=== PATIENT | male | born 1960 | race African-American/Black ===

== ENCOUNTER 2021-07-01 10:20 | Inpatient (IN) | payer MEDICAID, OTHER ==
[~2021-07-01] VITALS: Ht 182.9 cm; Wt 97.5 kg
[~2021-07-01 10:20] MED LIST: NALO4SPR BOTHNSTRLS
[2021-07-01] MEDS ORDERED: NALOXONE HCL 1 MG/ML 2ML VIAL ONE (10:35)
[2021-07-01 10:59] LABS: BASOPHILS % 0.3 % (0.0-2.0); EOSINOPHILS % 0.1 % (0.0-5.0); HEMATOCRIT. 48.1 % (42.0-52.0); HEMOGLOBIN. 16.4 g/dL (14.0-18.0); LYMPHOCYTES % 7.1 % (20.0-50.0); MEAN CORPUSCULAR HEMOGLOBIN 34.3 pg (28.0-32.0); MEAN CORPUSCULAR VOLUME 100.4 fL (80.0-94.0); MEAN PLATELET VOLUME 8.4 fl (7.4-10.4); MONOCYTES % 3.9 % (2.0-8.0); NEUTROPHILS % 88.6 % (40.0-76.0); PLATELET 220 x1000/uL (130-400); RED BLOOD CELL COUNT 4.79 mill/uL (4.7-6.1); RED CELL DISTRIBUTION WIDTH 14.6 % (11.6-14.6)
[2021-07-01 11:04] LABS: CHLORIDE 104 mEq/L (98-107)
[2021-07-01] MEDS ORDERED: LEVOFLOXACIN 750MG PREMIX 150 ML IV ONE (13:00)
[2021-07-01] MEDS ORDERED: FUROSEMIDE 20MG/2ML VIAL IVP ONE (13:00)
[2021-07-01 18:30] VITALS: BP 114/72
[2021-07-01 20:00] VITALS: BP 134/95
[2021-07-01] MEDS ORDERED: CLONIDINE 0.1MG TABLET PO PRN (23:45)
[2021-07-02] VITALS: BP 144/90
[2021-07-02 04:00] VITALS: BP 147/91
[2021-07-02 07:27] LABS: BASOPHILS % 0.1 % (0.0-2.0); HEMATOCRIT. 40.5 % (42.0-52.0); HEMOGLOBIN. 13.9 g/dL (14.0-18.0); LYMPHOCYTES % 11.8 % (20.0-50.0); MEAN CORPUSCULAR VOLUME 98.7 fL (80.0-94.0); MEAN PLATELET VOLUME 8.9 fl (7.4-10.4); MONOCYTES % 3.1 % (2.0-8.0); PLATELET 167 x1000/uL (130-400); RED CELL DISTRIBUTION WIDTH 14.3 % (11.6-14.6)
[2021-07-02 07:36] LABS: CHLORIDE 99 mEq/L (98-107)
[2021-07-02 08:00] VITALS: BP 167/74
[2021-07-02] MEDS ORDERED: PNEUMOCOCCAL 23-VAL P-SAC VAC 0.5 ML IM ONE (08:00)
[2021-07-02] MEDS ORDERED: ENOXAPARIN 40MG/0.4ML SYR SUBCUT SCH (09:00)
[2021-07-02] MEDS ORDERED: ASPIRIN 81MG TABLET PO SCH (09:00)
[2021-07-02] MEDS ORDERED: LISINOPRIL 10MG TABLET PO SCH (09:00)
[2021-07-02] MEDS ORDERED: FUROSEMIDE 40MG/4ML VIAL IVP SCH (09:00)
[2021-07-02] MEDS ORDERED: ENOXAPARIN 30MG/0.3ML SYR SUBCUT SCH (09:00)
[2021-07-02] MEDS ORDERED: CARVEDILOL 3.125 MG TABLET PO SCH (09:00)
[2021-07-02] MEDS ORDERED: AMLODIPINE 10MG TABLET PO SCH (09:00)
[2021-07-02 12:00] VITALS: BP 167/91
[2021-07-02 14:49] VITALS: BP 167/74
== END 2021-07-02 15:13 | disposition home or self-care (01) | DRG 52 ==
LOC: ER 10:20 → 7EST 14:31 → EDBEDREQ 15:25 → EDBEDREQTM 15:25 → ENRESERV 16:07
PROVIDERS: ADMIT Internal Medicine; ATTEND Internal Medicine
DX: G92.9 Unspecified toxic encephalopathy (principal); N17.0 Acute kidney failure with tubular necrosis; J81.0 Acute pulmonary edema; E11.9 Type 2 diabetes mellitus without complications; Z20.822 Contact with and (suspected) exposure to COVID-19; I10 Essential (primary) hypertension; Z79.899 Other long term (current) drug therapy; F19.10 Other psychoactive substance abuse, uncomplicated
CPT/HCPCS: 36415; 71045; 80048; 80053; 82962; 83880; 84484; 85025; 87426; 90732; 93306; 99285; J1650; J1940; J1956; J2310

== ENCOUNTER 2022-08-18 12:50 | Inpatient (IN) | payer MEDICAID, OTHER ==
[~2022-08-18] VITALS: Ht 182.9 cm; Wt 83.0 kg
[~2022-08-18 12:50] MED LIST changes: +FAMO20TA8 PO; +GABA-529 MT; +LEVO-65 MT; -NALO4SPR BOTHNSTRLS
[2022-08-18] MEDS ORDERED: MORPHINE SULFATE 4 MG/ML CPJ (NOT FOR IM USE) IV STA (13:21)
[2022-08-18] MEDS ORDERED: ONDANSETRON HCL 4MG/2ML INJ IV STA (13:21)
[2022-08-18] MEDS ORDERED: SODIUM CHLORIDE 0.9% 1,000 ML IV ONE (13:30)
[2022-08-18] MEDS ORDERED: PIPERACILLIN/TAZ 3.375G PREMIX 50 ML IV ONE (14:45)
[2022-08-18] MEDS ORDERED: SODIUM CHLORIDE 0.9% 1000ML BAG (SEPSIS BOLUS) IV ONE (14:45)
[2022-08-18] MEDS ORDERED: VANCOMYCIN 1G PREMIX 200 ML IV ONE (14:45)
[2022-08-18 14:48] LABS: HEMATOCRIT. 37.6 % (42.0-52.0); HEMOGLOBIN. 12.3 g/dL (14.0-18.0); MEAN CORPUSCULAR HEMOGLOBIN 28.3 pg (28.0-32.0); MEAN CORPUSCULAR VOLUME 86.3 fL (80.0-94.0); MEAN PLATELET VOLUME 7.5 fl (7.4-10.4); PLATELET 250 x1000/uL (130-400); RED BLOOD CELL COUNT 4.36 mill/uL (4.7-6.1); RED CELL DISTRIBUTION WIDTH 20.3 % (11.6-14.6)
[2022-08-18 14:56] LABS: CHLORIDE 101 mEq/L (98-107)
[2022-08-18 15:15] LABS: PLATELET ESTIMATE NORMAL
[2022-08-18] MEDS ORDERED: ONDANSETRON HCL 4MG/2ML INJ IV NR (15:45)
[2022-08-18] MEDS ORDERED: MORPHINE SULFATE 4 MG/ML CPJ (NOT FOR IM USE) IV NR (15:45)
[2022-08-18 16:14] LABS: INR 1.2; PROTHROMBIN TIME 12.3 sec (9.6-11.0)
[2022-08-18] MEDS ORDERED: MORPHINE SULFATE 2 MG/ML CPJ (NOT FOR IM USE) IV PRN (19:00)
[2022-08-18] MEDS ORDERED: ONDANSETRON HCL 4MG/2ML INJ IV PRN (19:00)
[2022-08-18] MEDS ORDERED: NALOXONE HCL 0.4MG/ML VIAL IV PRN (19:15)
[2022-08-18] MEDS ORDERED: IBUPROFEN 400MG TABLET PO ONE (21:00)
[2022-08-18] MEDS ORDERED: ACETAMINOPHEN 325MG TABLET PO ONE (21:00)
[2022-08-18 21:58] LABS: *AMPHETAMINES SCREEN URINE NEGATIVE (NEGATIVE); *BARBITURATES SCREEN URINE NEGATIVE (NEGATIVE); *BENZODIAZEPINES SCREEN URINE NEGATIVE (NEGATIVE); *COCAINE SCREEN URINE PRESUMTIVE POSITIVE (NEGATIVE); CANNABINOID URINE SCREEN PRESUMTIVE POSITIVE (NEGATIVE); METHADONE URINE SCREEN NEGATIVE (NEGATIVE); OPIATES URINE SCREEN PRESUMTIVE POSITIVE (NEGATIVE); PHENCYCLIDINE URINE SCREEN PRESUMTIVE POSITIVE (NEGATIVE)
[2022-08-18 22:42] LABS: CLARITY URINE CLEAR (CLEAR); COLOR URINE DARK YELLOW (YELLOW); KETONES URINE 3+ (NEGATIVE); LEUKOCYTE ESTERASE URINE NEGATIVE (NEGATIVE); NITRITE URINE NEGATIVE (NEGATIVE); OCCULT BLOOD URINE 1+ (NEGATIVE); PROTEIN URINE 2+ (NEGATIVE); SPECIFIC GRAVITY URINE 1.023 (1.005-1.030)
[2022-08-18 23:00] VITALS: BP 125/76
[2022-08-19] MEDS ORDERED: DEXTROSE 50% WATER 50ML SYRINGE IV PRN (01:00)
[2022-08-19] MEDS: CEFTRIAXONE 1,000 MG in DEXTROSE 5% WATER 50 ML IV SCH (02:12)
[2022-08-19] MEDS: AZITHROMYCIN 500 MG in DEXT 5% WATER 250 ML IV SCH (02:53)
[2022-08-19 04:00] VITALS: BP 126/86
[2022-08-19 06:28] LABS: BASOPHILS % 0.3 % (0.0-2.0); EOSINOPHILS % 0.1 % (0.0-5.0); HEMATOCRIT. 35.3 % (42.0-52.0); HEMOGLOBIN. 11.6 g/dL (14.0-18.0); LYMPHOCYTES % 10.8 % (20.0-50.0); MEAN CORPUSCULAR HEMOGLOBIN 28.6 pg (28.0-32.0); MEAN CORPUSCULAR VOLUME 87.3 fL (80.0-94.0); MONOCYTES % 4.1 % (2.0-8.0); NEUTROPHILS % 84.7 % (40.0-76.0); PLATELET 189 x1000/uL (130-400); RED BLOOD CELL COUNT 4.04 mill/uL (4.7-6.1)
[2022-08-19] MEDS: INSULIN LISPRO 100 UNITS/ML SUBCUT SCH ×2 (06:32→12:25)
[2022-08-19] MEDS: BLOOD SUGAR DIAGNOSTIC STRIP TEST SCH ×2 (06:32→12:18)
[2022-08-19 07:15] LABS: CHLORIDE 106 mEq/L (98-107)
[2022-08-19 08:00] VITALS: BP 147/89
[2022-08-19 12:00] VITALS: BP 156/90
[2022-08-19] MEDS: DEXT 5%/LACTATED RINGERS 1,000 ML IV SCH ×2 (12:21)
[2022-08-19 16:00] VITALS: BP 117/69
[2022-08-19 20:00] VITALS: BP 124/77
[2022-08-19] MEDS: ACETAMINOPHEN 325MG TABLET PO PRN (21:21)
[2022-08-20] VITALS (11 sets, daily range): BP systolic 111–135; BP diastolic 75–88
[2022-08-20] MEDS: CEFTRIAXONE 1,000 MG in DEXTROSE 5% WATER 50 ML IV SCH (02:26)
[2022-08-20] MEDS: AZITHROMYCIN 500 MG in DEXT 5% WATER 250 ML IV SCH (03:43)
[2022-08-20] MEDS ORDERED: LIDOCAINE HCL/PF 1% 10 MG/ML 5ML VIAL ONE (07:36)
[2022-08-20] MEDS ORDERED: IOHEXOL-300 50 ML BOTTLE IV ONE (07:36)
[2022-08-20] MEDS ORDERED: FENTANYL CITRATE/PF 50MCG/ML 2ML VIAL ONE (07:55)
[2022-08-20] MEDS ORDERED: MIDAZOLAM HCL 2 MG/2 ML VIAL ONE (07:55)
[2022-08-20] MEDS ORDERED: CEFAZOLIN 1000MG PREMIX 50 ML IV ONE ×3 (07:56→10:00)
[2022-08-20] MEDS ORDERED: FENTANYL CITRATE/PF 50MCG/ML 2ML VIAL IV ONE (08:20)
[2022-08-20] MEDS ORDERED: CEFAZOLIN 1000MG PREMIX 50 ML IV SCH (08:20)
[2022-08-20] MEDS ORDERED: MIDAZOLAM HCL 2 MG/2 ML VIAL IV ONE (08:20)
[2022-08-20] MEDS: ACETAMINOPHEN 325MG TABLET PO PRN (17:53)
[2022-08-20] MEDS ORDERED: IBUPROFEN 600MG TABLET PO PRN (18:45)
[2022-08-20] MEDS ORDERED: IPRATROPIUM/ALBUTEROL 0.5-3(2.5)MG/3ML NEB HHN PRN (18:45)
[2022-08-20] MEDS ORDERED: GUAIFENESIN-DM 200MG-20MG/10ML UDC PO PRN (18:45)
[2022-08-21] VITALS: BP 119/78
[2022-08-21] MEDS: DEXT 5%/LACTATED RINGERS 1,000 ML IV SCH (02:25)
[2022-08-21] MEDS: CEFTRIAXONE 1,000 MG in DEXTROSE 5% WATER 50 ML IV SCH (02:25)
[2022-08-21] MEDS: AZITHROMYCIN 500 MG in DEXT 5% WATER 250 ML IV SCH (02:25)
[2022-08-21 04:00] VITALS: BP 117/67
[2022-08-21 08:00] VITALS: BP 133/88
[2022-08-21 12:00] VITALS: BP 124/90
[2022-08-21 16:00] VITALS: BP 131/63
[2022-08-21 20:00] VITALS: BP 127/79
[2022-08-22] VITALS: BP 133/82
[2022-08-22] MEDS: DEXT 5%/LACTATED RINGERS 1,000 ML IV SCH (01:57)
[2022-08-22] MEDS: CEFTRIAXONE 1,000 MG in DEXTROSE 5% WATER 50 ML IV SCH (01:57)
[2022-08-22 04:00] VITALS: BP 123/79
[2022-08-22 08:00] VITALS: BP 136/88
[2022-08-22] MEDS: AZITHROMYCIN 500 MG TABLET PO SCH (08:21)
[2022-08-22] MEDS ORDERED: LEVO-65 MT (10:55)
[2022-08-22 12:00] VITALS: BP 119/81
[2022-08-22 16:00] VITALS: BP 135/92
[2022-08-22 20:00] VITALS: BP 122/88
[2022-08-23] VITALS: BP 125/84
[2022-08-23] MEDS: CEFTRIAXONE 1,000 MG in DEXTROSE 5% WATER 50 ML IV SCH (00:49)
[2022-08-23] MEDS: DEXT 5%/LACTATED RINGERS 1,000 ML IV SCH (00:49)
[2022-08-23 04:00] VITALS: BP 129/75
[2022-08-23 08:00] VITALS: BP 108/75
[2022-08-23] MEDS: AZITHROMYCIN 500 MG TABLET PO SCH (09:35)
[2022-08-23 10:40] VITALS: BP 108/75
[2022-08-23 12:00] VITALS: BP 144/111
== END 2022-08-23 12:40 | disposition home or self-care (01) | DRG 466 ==
LOC: ER 12:50 → 8WST 16:19 → EDBEDREQ 16:26 → EDBEDREQTM 16:26 → ER 08-19 00:15
PROVIDERS: ADMIT Internal Medicine; ATTEND Internal Medicine
PROC: 0T25X0Z Change Drainage Device in Kidney, External Approach (ICD-10-PCS; principal; 2022-08-20)
DX: T83.022A Displacement of nephrostomy catheter, initial encounter (principal); J18.9 Pneumonia, unspecified organism; D64.9 Anemia, unspecified; E87.6 Hypokalemia; E11.9 Type 2 diabetes mellitus without complications; F10.20 Alcohol dependence, uncomplicated; Z20.822 Contact with and (suspected) exposure to COVID-19; F17.210 Nicotine dependence, cigarettes, uncomplicated; I10 Essential (primary) hypertension; Y73.2 Prosthetic and other implants, materials and accessory gastroenterology and urology devices associated with adverse incidents; Y92.89 Other specified places as the place of occurrence of the external cause
CPT/HCPCS: 36415; 50435; 71045; 74176; 80048; 80053; 80305; 80320; 81003; 82962; 83036; 83605; 83880; 84484; 85025; 86850; 86900; 87426; 93005; 99152; 99153; 99285; C1729; C1769; C9803; J0456; J0690; J0696; J2250; J2270; J2405; J2543; J3010; J3370; J3490; J7030; J7060; Q9967; G0480; G0500

== ENCOUNTER 2023-01-04 11:44 | Emergency (ER) | payer MEDICAID ==
[~2023-01-04] VITALS: Ht 182.9 cm; Wt 84.0 kg
[2023-01-04 11:50] VITALS: BP 168/99
[2023-01-04 13:42] LABS: BASOPHILS % 0.8 % (0.0-2.0); EOSINOPHILS % 0.8 % (0.0-5.0); HEMATOCRIT. 38.8 % (42.0-52.0); HEMOGLOBIN. 13.2 g/dL (14.0-18.0); LYMPHOCYTES % 43.8 % (20.0-50.0); MEAN CORPUSCULAR HEMOGLOBIN 31.8 pg (28.0-32.0); MEAN CORPUSCULAR VOLUME 93.6 fL (80.0-94.0); MEAN PLATELET VOLUME 6.8 fl (7.4-10.4); MONOCYTES % 5.2 % (2.0-8.0); NEUTROPHILS % 49.4 % (40.0-76.0); PLATELET 439 x1000/uL (130-400); RED BLOOD CELL COUNT 4.15 mill/uL (4.7-6.1); RED CELL DISTRIBUTION WIDTH 15.1 % (11.6-14.6)
[2023-01-04 13:52] LABS: CHLORIDE 104 mEq/L (98-107)
== END 2023-01-04 15:41 | disposition home or self-care (01) ==
LOC: ER 11:44
DX: T83.022A Displacement of nephrostomy catheter, initial encounter (principal); F41.9 Anxiety disorder, unspecified; E11.9 Type 2 diabetes mellitus without complications; I10 Essential (primary) hypertension; Y92.89 Other specified places as the place of occurrence of the external cause
CPT/HCPCS: 36415; 80053; 85025; 99283

== ENCOUNTER 2023-08-19 13:57 | Emergency (ER) | payer MEDICAID ==
[~2023-08-19] VITALS: Ht 167.6 cm; Wt 70.0 kg
[2023-08-19 14:03] VITALS: BP 154/90; PULSE 98; RESP 16; TEMP 98.2; O2SAT 100
[2023-08-19] MEDS ORDERED: ACETAMINOPHEN 325MG TABLET PO ONE (14:15)
[2023-08-19] MEDS ORDERED: IBUPROFEN 600MG TABLET PO ONE (14:15)
== END 2023-08-19 15:43 | disposition left against medical advice (07) ==
LOC: ER 14:06
DX: M79.604 Pain in right leg (principal); F41.9 Anxiety disorder, unspecified; E11.9 Type 2 diabetes mellitus without complications; I10 Essential (primary) hypertension; F14.90 Cocaine use, unspecified, uncomplicated
CPT/HCPCS: 99283

== ENCOUNTER 2024-01-04 01:06 | Inpatient (IN) | payer OTHER ==
[~2024-01-04] VITALS: Ht 170.2 cm; Wt 65.8 kg
[2024-01-04 01:11] VITALS: O2SAT 100
[2024-01-04 01:40] LABS: BASOPHILS % 1.2 % (0.0-2.0); EOSINOPHILS % 0.6 % (0.0-5.0); HEMATOCRIT. 37.9 % (42.0-52.0); HEMOGLOBIN. 13.1 g/dL (14.0-18.0); LYMPHOCYTES % 30.5 % (20.0-50.0); MEAN CORPUSCULAR HEMOGLOBIN 33.4 pg (28.0-32.0); MEAN CORPUSCULAR HGB CONC 34.7 g/dL (31.0-37.0); MEAN CORPUSCULAR VOLUME 96.3 fL (80.0-94.0); MEAN PLATELET VOLUME 8.5 fl (7.4-10.4); MONOCYTES % 7.1 % (2.0-8.0); NEUTROPHILS % 60.6 % (40.0-76.0); PLATELET 227 x1000/uL (130-400); RED BLOOD CELL COUNT 3.94 mill/uL (4.7-6.1); RED CELL DISTRIBUTION WIDTH 14.1 % (11.6-14.6); WHITE BLOOD COUNT 4.7 x1000/uL (4.5-11.0)
[2024-01-04 01:58] LABS: INR 1.1; PROTHROMBIN TIME 11.7 sec (9.6-11.0)
[2024-01-04 01:59] LABS: ALANINE AMINOTRANSFERASE 31 IU/L (10-49); ALBUMIN 4.5 g/dL (3.2-4.8); ASPARTATE AMINOTRANSFERASE 31 IU/L (<34); CALCIUM 9.3 mg/dL (8.7-10.4); CARBON DIOXIDE 30 mEq/L (21-32); CHLORIDE 97 mEq/L (98-107); CREATININE 0.6 mg/dL (0.6-1.3); GLUCOSE 116 mg/dL (70-105); POTASSIUM 3.5 mEq/L (3.5-5.1); PROTEIN TOTAL 8.2 g/dL (6.0-8.3); SODIUM 133 mEq/L (136-145); TROPONIN I HIGH SENSITIVITY 5 ng/L (3.0-53); UREA NITROGEN BLOOD 19 mg/dL (9-23)
[2024-01-04 02:00] LABS: ETHANOL BLOOD < 10 mg/dL (<10)
[2024-01-04] MEDS: ONDANSETRON HCL 4MG/2ML INJ IV NR (03:16)
[2024-01-04] MEDS: MORPHINE SULFATE 4 MG/ML INJ (FOR IV/IM USE) IV NR (03:16)
[2024-01-04 04:28] LABS: TROPONIN I HIGH SENSITIVITY 12 ng/L (3.0-53)
[2024-01-04 06:43] LABS: CLARITY URINE CLEAR (CLEAR); COLOR URINE DARK YELLOW (YELLOW); GLUCOSE URINE NEGATIVE (NEGATIVE); KETONES URINE NEGATIVE (NEGATIVE); LEUKOCYTE ESTERASE URINE NEGATIVE (NEGATIVE); NITRITE URINE NEGATIVE (NEGATIVE); OCCULT BLOOD URINE NEGATIVE (NEGATIVE); PROTEIN URINE 1+ (NEGATIVE); SPECIFIC GRAVITY URINE 1.023 (1.005-1.030)
[2024-01-04 07:13] LABS: *AMPHETAMINES SCREEN URINE PRESUMPTIVE POSITIVE (NEGATIVE); *BARBITURATES SCREEN URINE NEGATIVE (NEGATIVE); *BENZODIAZEPINES SCREEN URINE PRESUMPTIVE POSITIVE (NEGATIVE); *COCAINE SCREEN URINE PRESUMPTIVE POSITIVE (NEGATIVE); CANNABINOID URINE SCREEN PRESUMPTIVE POSITIVE (NEGATIVE); ECSTASY MDMA SCREEN URINE NEGATIVE (NEGATIVE); METHADONE URINE SCREEN Neg (NEGATIVE); OPIATES URINE SCREEN NEGATIVE (NEGATIVE); PHENCYCLIDINE URINE SCREEN PRESUMTIVE POSITIVE (NEGATIVE)
[2024-01-04 07:19] LABS: BACTERIA URINE TRACE; RBC URINE NONE SEEN /hpf (0-2); SQUAMOUS EPITHELIAL CELL URINE FEW /lpf (RARE/1+); WBC URINE NONE SEEN /hpf (0-2)
[2024-01-04] MEDS ORDERED: AMLO10TA80 MT (11:49)
[2024-01-04] MEDS: AMLODIPINE 10MG TABLET PO SCH (12:00)
[2024-01-04] MEDS: ASPIRIN 81MG TABLET PO SCH (12:00)
[2024-01-04 19:20] VITALS: BP 136/82; PULSE 82; RESP 16; TEMP 98.6
== END 2024-01-04 19:21 | disposition home or self-care (01) | DRG 199 ==
LOC: ER 01:06 → 5WST 05:27 → EDBEDREQ 05:29
PROVIDERS: ADMIT Internal Medicine; ATTEND Internal Medicine
DX: I16.0 Hypertensive urgency (principal); F17.210 Nicotine dependence, cigarettes, uncomplicated; F19.10 Other psychoactive substance abuse, uncomplicated; R07.89 Other chest pain; I10 Essential (primary) hypertension; Z79.899 Other long term (current) drug therapy
CPT/HCPCS: 36415; 71045; 80053; 80305; 80320; 81003; 83880; 84484; 85025; 93005; 99285; J2270; J2405; G0480